=== PATIENT | female | born 1945 | race Caucasian/White ===

== ENCOUNTER → 2016-07-18 | Outpatient (RCR) ==
--- NOTE | 2016-07-02 12:57 | RS.OPPTEV2 ---
Date of Note: 07/02/16 Visit #: 1 Date of Evaluation: 07/02/16 Payer Source: MEDICARE Date of Onset/Injury/Change in Status: 04/20/16 Surgery Performed?: No Treatment Diagnosis: Neck pain History of Condition/Mechanism of Injury:: Patient states she has RA and OA which have been progressing over the past 6 months. She receives IV infusions months of Simponit for her RA. She states she has constant neck and lower back pain but the neck is more intense. 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 She has had no specific injury or event that she is aware of which triggered her pain. She denies radicular symptoms. Prior Level of Function.....Patient was independent with: ADL's, Self Care, Work /Vocation, Caregiving, Ambulation/Mobility, Community Integration/Access Functional Limitations: Lifting, Carrying Treatment Side (optional): Bilateral Medical History Medical History: Arthritis Medical History Comments:: RA & OA Surgical History: Other Surgical History Comments:: Right thumb tendon transfer to [facility] Smoking Status: Never smoker Hx Home Medications: Just began Celebrex, aspirin, calcium, fish oil, neurotin, glucosamine & restasis Pain Assessment - Pain Description Pain Location: Cervical and Lower back Pain Description: Chronic Pain Description: Constant Current Pain Intensity: 2/10 Functional Outcome Measure Oswestry LBP: 12 (24% disability) - G Codes & Severity Modifier G Codes & Modifier: Carrying: Eval - CJ. Goal - CI Source of G Code score: Oswestry LBP Scale Observation - Observation Posture: Forward Head (Conor), Rounded Shoulders Handedness: Right Comments: Bilateral scapular winging. - ROM Cervical Left Rotation: 75 (%) Cervical Spine Range of Motion Limitations: Pain - Strength Cervical Extension: 4+ Good + Cervical Flexion: 4+ Good + Cervical Lateral Flexion: 4+ Good + Cervical Rotation: 4 Good Shoulder ROM: Bilaterally WFL's Shoulder Muscle Strength: Bilaterally WFL's Palpation Palpation Findings: None/Normal Sensation - Sensation Right Lower Extremity: Impaired Sensation Description: Tingling Interventions - Exercise/Activities/Manual Therapy Exercises/Activities: na Manual Therapy: A-O release and lateral cervical glides with right being stricked at every level. Total minutes of Manual Therapy: 10 - Charges Total Direct Minutes: 15 Total Treatment Time: 60 Procedures billed for this date of service:: PT Anibal (Medium) & MT Assessment Assessment: Constant pain in the neck and lower back with neck being more severe and focus of tx at this tme. She has limited left cervical rotation and SB, scapular weakness and bilateral pec tightness. Short Term Goals Goal #1: Independent with basic HEP Goal to be met by: 07/18/16 Goal #2: Pt sleeps through the night w/o pain awakening her. Goal to be met by: 07/18/16 Goal #3: Independent with proper body mechanics for her work duties. Goal to be met by: 07/18/16 Counsellors Goals Goal #1: Pain is less than daily in the neck. Goal to be met by: 08/08/16 Goal #2: Patient independent with scapular strengthening. Goal to be met by: 08/08/16 Goal #3: CROM WNLs in all planes w/o pain. Plan - Treatment to be Provided Procedures: Therapeutic Exercises (Treatment code: Neck pain M54.2), Therapeutic Activity, Manual Therapy, Patient Education Modalities: Electrical Stimulation, Ultrasound/Phonophoresis, Class IV Laser, Cryotherapy, Hot Packs - Treatment Plan Frequency: 3 X week Duration: 6 weeks ORDER # VISITS AND/OR THROUGH DATE: 08/08/2016
--- NOTE | 2016-07-04 15:32 | RS.OPPTDN ---
Subjective Date of Note: 07/04/16 Visit #: 2 Date of Evaluation: 07/02/16 Payer Source: MEDICARE Treatment Diagnosis: Neck pain Current Subjective/complaints:: Patient reports her neck pain is minimal at rest currently,but has increased sudden pain at times ,dependent upon the position of her neck,such as while driving. Pain Assessment - Pain Description Pain Location: Cervical and Lower back Pain Description: Chronic Pain Description: Constant Current Pain Intensity: 2/10 - Treatment Modality: Electrical Stim Unattended Parameters/Method Applied: 20 mins. high volt,one channel( 2 electrodes on bilateral cervical/UT's) @95 pv. Patient Position: Sitting - Heat/Cryotherapy Treatment: Hot Pack (concurrent with e-stim) Interventions - Exercise/Activities/Manual Therapy Exercises/Activities: 20 mins. total ,instructed in chin tucks,CROM of lateral flexion ,rotation,passive shoulder depression,postural awareness,ergonomics, and body mechanics. Total minutes of Exercise: 20 Manual Therapy: NA Total minutes of Manual Therapy: 0 HOME EXERCISE PROGRAM: Cervical ROM in PAIN FREE ROM,gravity assisted stretches in supine for posture. - Charges Total Direct Minutes: 20 Total Treatment Time: 40 Procedures billed for this date of service:: hp,e-stim,ex 1 Assessment: Patient very attentive ,motivated to improve.She has good return demo of exercises.She reports increased pain with cervical lateral flexion today.She has decreased cervical lordosis present.We discussed making her work environment more user friendly to assist decreasing the forward head,rounded shoulders posturing. Patient Education: Education of diagnosis, Body/Joint mechanics, Home Exercise Program, Home Safety, Activity Modification, Education of Plan of Care Patient demonstrates compliance with HEP?: Yes Short Term Goals Goal #1: Independent with basic HEP Goal to be met by: 07/18/16 Progress towards Goal:: Progressing Goal #2: Pt sleeps through the night w/o pain awakening her. Goal to be met by: 07/18/16 Goal #3: Independent with proper body mechanics for her work duties. 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 Goal to be met by: 08/08/16 Goal #2: Patient independent with scapular strengthening. Goal to be met by: 08/08/16 Goal #3: CROM WNLs in all planes w/o pain. Plan PLAN OF CARE EXPIRES ON:: 08/08/16 ORDER # VISITS AND/OR THROUGH DATE: 08/08/2016 PLAN: Continue Plan of Care
--- NOTE | 2016-07-07 10:12 | RS.OPPTDN ---
Subjective Date of Note: 07/07/16 Visit #: 3 Date of Evaluation: 07/02/16 Payer Source: MEDICARE Treatment Diagnosis: Neck pain Current Subjective/complaints:: Patient reports the neck pain feels about the same today,but is not interfering with her sleep. Pain Assessment - Pain Description Pain Location: Cervical and Lower back Pain Description: Dull, Aching, Chronic Pain Description: constant Current Pain Intensity: 2/10 - Treatment Modality: Electrical Stim Unattended Parameters/Method Applied: 20 mins. high volt to cervical paraspinals,75 -90 pv. Patient Position: Sitting - Heat/Cryotherapy Treatment: Hot Pack (concurrent with e-stim) Interventions - Exercise/Activities/Manual Therapy Exercises/Activities: HEP review while on e-stim. Total minutes of Exercise: 0 Manual Therapy: 20 mins. deep tissue massage to cervical /UT's area,trigger point work to R UT. Total minutes of Manual Therapy: 20 HOME EXERCISE PROGRAM: Cervical ROM in PAIN FREE ROM,gravity assisted stretches in supine for posture. - Charges Total Direct Minutes: 20 Total Treatment Time: 40 Procedures billed for this date of service:: hp,e-stim,manual 1 Assessment: Patient reports significant relief today after manual therapy,less pain with cervical motion.She is compliant to HEP. Patient Education: Education of diagnosis, Body/Joint mechanics, Home Exercise Program, Home Safety, Activity Modification, Education of Plan of Care Patient demonstrates compliance with HEP?: Yes Short Term Goals Goal #1: Independent with basic HEP Goal to be met by: 07/18/16 Progress towards Goal:: Progressing Goal #2: Pt sleeps through the night w/o pain awakening her. Goal to be met by: 07/18/16 Goal #3: Independent with proper body mechanics for her work duties. 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 Goal to be met by: 08/08/16 Goal #2: Patient independent with scapular strengthening. Goal to be met by: 08/08/16 Progress towards goal: Progressing Goal #3: CROM WNLs in all planes w/o pain. Plan PLAN OF CARE EXPIRES ON:: 08/08/16 ORDER # VISITS AND/OR THROUGH DATE: 08/08/2016 PLAN: Continue Plan of Care
--- NOTE | 2016-07-09 16:29 | RS.OPPTDN ---
Subjective Date of Note: 07/09/16 Visit #: 4 Date of Evaluation: 07/02/16 Payer Source: MEDICARE Treatment Diagnosis: Neck pain Current Subjective/complaints:: Reports she feels much better today,is also more aware of her posture. Pain Assessment - Pain Description Pain Location: Cervical and Lower back Pain Description: Dull, Aching, Chronic Current Pain Intensity: 04/29 - Treatment Modality: Electrical Stim Unattended Parameters/Method Applied: 20 mins. high volt,to cervical/UT's one channel @ 75- 105pv. Patient Position: Sitting - Heat/Cryotherapy Treatment: Hot Pack (concurrent with e-stim) Interventions - Exercise/Activities/Manual Therapy Exercises/Activities: 20 mins. instruction for postural pullbacks with yellow- theraband at three different levels,HEP review of cervical ROM. Total minutes of Exercise: 20 Manual Therapy: N/A Total minutes of Manual Therapy: 0 HOME EXERCISE PROGRAM: Cervical ROM in PAIN FREE ROM,gravity assisted stretches in supine for posture. - Charges Total Direct Minutes: 20 Total Treatment Time: 40 Procedures billed for this date of service:: hp,e-stim,ex 1 Assessment: Patient progressing ,has good return demo of new exercises for HEP.Her pain level is decreased and less frequent the past couple of days.She has increased awareness of her posture. Patient Education: Education of diagnosis, Body/Joint mechanics, Home Exercise Program, Home Safety, Activity Modification, Education of Plan of Care Patient demonstrates compliance with HEP?: Yes Short Term Goals Goal #1: Independent with basic HEP Goal to be met by: 07/18/16 Progress towards Goal:: Progressing Goal #2: Pt sleeps through the night w/o pain awakening her. Goal to be met by: 07/18/16 Progress towards Goal:: Progressing Goal #3: Independent with proper body mechanics for her work duties. 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 Goal to be met by: 08/08/16 Goal #2: Patient independent with scapular strengthening. Goal to be met by: 08/08/16 Progress towards goal: Progressing Goal #3: CROM WNLs in all planes w/o pain. Plan PLAN OF CARE EXPIRES ON:: 08/08/16 ORDER # VISITS AND/OR THROUGH DATE: 08/08/2016 PLAN: Continue Plan of Care
--- NOTE | 2016-07-11 16:33 | RS.OPPTDN ---
Subjective Date of Note: 07/11/16 Visit #: 5 Date of Evaluation: 07/02/16 Payer Source: MEDICARE Treatment Diagnosis: Neck pain Current Subjective/complaints:: Reports feeling better today,is compliant to HEP. Pain Assessment - Pain Description Pain Location: Cervical and Lower back Pain Description: Dull, Aching, Chronic Current Pain Intensity: 1-2/10 - Treatment Modality: Electrical Stim Unattended Parameters/Method Applied: 20 mins high volt ,one channel @ 90 pv. to cervical/ UT's. Patient Position: Sitting - Heat/Cryotherapy Treatment: Hot Pack (concurrent with e-stim) Interventions - Exercise/Activities/Manual Therapy Exercises/Activities: N/A Total minutes of Exercise: 0 Manual Therapy: 20 mins.deep tissue mobs. to cervical/UT's. Total minutes of Manual Therapy: 20 HOME EXERCISE PROGRAM: Cervical ROM in PAIN FREE ROM,gravity assisted stretches in supine for posture. - Charges Total Direct Minutes: 20 Total Treatment Time: 40 Procedures billed for this date of service:: hp,e-stim,manual 1 Assessment: Progressing well with HEP,does have R sided trigger point at base of her neck,which elicits pain with rotation to the L today.We discussed to stretch before and after strengthening exercises at the gym. Patient Education: Education of diagnosis, Body/Joint mechanics, Home Exercise Program, Home Safety, Activity Modification, Education of Plan of Care Patient demonstrates compliance with HEP?: Yes Short Term Goals Goal #1: Independent with basic HEP Goal to be met by: 07/18/16 Progress towards Goal:: Progressing Goal #2: Pt sleeps through the night w/o pain awakening her. Goal to be met by: 07/18/16 Progress towards Goal:: Progressing Goal #3: Independent with proper body mechanics for her work duties. Goal to be met by: 07/18/16 Progress towards Goal:: Progressing Halfway Goals Goal #1: Pain is less than daily in the neck. Goal to be met by: 08/08/16 Progress towards goal: Progressing Goal #2: Patient independent with scapular strengthening. Goal to be met by: 08/08/16 Progress towards goal: Progressing Goal #3: CROM WNLs in all planes w/o pain. Plan PLAN OF CARE EXPIRES ON:: 08/08/16 ORDER # VISITS AND/OR THROUGH DATE: 08/08/2016 PLAN: Continue Plan of Care
--- NOTE | 2016-07-15 09:22 | RS.OPPTDN ---
Subjective Date of Note: 07/15/16 Visit #: 6 Date of Evaluation: 07/02/16 Payer Source: MEDICARE Treatment Diagnosis: Neck pain Current Subjective/complaints:: Reports the neck is feeling better,is doing her HEP.We will focus on her back pain and address exercises for the lumbar. Pain Assessment - Pain Description Pain Location: Cervical and Lower back Pain Description: Dull, Aching, Chronic Pain Description: constant Current Pain Intensity: 1-2/10 - Heat/Cryotherapy Treatment: Hot Pack (20 mins. to lumbar in supine prior to exercises) Interventions - Exercise/Activities/Manual Therapy Exercises/Activities: 25 mins. instruction of pelvic tilts,SKTC,DKTC,90/90 hamstring stretches,piriformis stretches,and HEP review of exercises already given,including the theraband postural pullbacks. Total minutes of Exercise: 25 Manual Therapy: N/A Total minutes of Manual Therapy: 0 HOME EXERCISE PROGRAM: Cervical ROM in PAIN FREE ROM,gravity assisted stretches in supine for posture. - Charges Total Direct Minutes: 25 Total Treatment Time: 45 Procedures billed for this date of service:: hp,ex 2 Assessment: Patient reports stretch discomfort only with low back/LE exercises.She has moderate tightness ni the R piriformis and hamstring group, but does respond well to stretching.She is highly motivated to improve and coompliant to HEP. Patient Education: Education of diagnosis, Body/Joint mechanics, Home Exercise Program, Home Safety, Activity Modification, Education of Plan of Care Patient demonstrates compliance with HEP?: Yes Short Term Goals Goal #1: Independent with basic HEP Goal to be met by: 07/18/16 Progress towards Goal:: Partially Met Goal #2: Pt sleeps through the night w/o pain awakening her. Goal to be met by: 07/18/16 Progress towards Goal:: Progressing Goal #3: Independent with proper body mechanics for her work duties. Goal to be met by: 07/18/16 Progress towards Goal:: Progressing Custodial Goals Goal #1: Pain is less than daily in the neck. Goal to be met by: 08/08/16 Progress towards goal: Progressing Goal #2: Patient independent with scapular strengthening. Goal to be met by: 08/08/16 Progress towards goal: Progressing Goal #3: CROM WNLs in all planes w/o pain. Progress towards goal: Progressing Plan PLAN OF CARE EXPIRES ON:: 08/08/16 ORDER # VISITS AND/OR THROUGH DATE: 08/08/2016 PLAN: Continue Plan of Care
--- NOTE | 2016-07-17 08:41 | RS.OPPTDN ---
Subjective Date of Note: 07/16/16 Visit #: 7 Date of Evaluation: 07/02/16 Payer Source: MEDICARE Treatment Diagnosis: Neck pain Current Subjective/complaints:: Patient reports back pain is better since progressing stretching. States she has had little to no neck pain today. Pain Assessment - Pain Description Pain Location: Cervical and Lower back Pain Description: Dull, Aching, Chronic Pain Description: constant Current Pain Intensity: neck 0-2/10 and mild LBP today. - Heat/Cryotherapy Treatment: Hot Pack ([id number] to the neck and lowback prior to EX. Patient in supine. ) Interventions - Exercise/Activities/Manual Therapy Exercises/Activities: 30 mins. Reviewed cervical stretching and theraband for postural pullbacks. Assisted with hamstring, piriformis, figure 4, SKTC, and trunk rotation stretching. Pelvic tilts, isometric hip add, isometric hip flexion, bridging. Reviewed patient education of dx, body mechanics, and HEP. Patient given copies of new exercises. Total minutes of Exercise: 30mins Manual Therapy: N/A HOME EXERCISE PROGRAM: Cervical ROM in PAIN FREE ROM, gravity assisted stretches in supine for posture. HS and piriformis stretching. Isometric hip flexion. Bridging. - Charges Total Direct Minutes: 30mins Total Treatment Time: 50mins Procedures billed for this date of service:: HP, EX2 Assessment: Patient reporting improvement in pain with progressive exercise. Patient Education: Education of diagnosis, Body/Joint mechanics, Home Exercise Program, Home Safety, Activity Modification Patient demonstrates compliance with HEP?: Yes Short Term Goals Goal #1: Independent with basic HEP Goal to be met by: 07/18/16 Progress towards Goal:: Met Goal #2: Pt sleeps through the night w/o pain awakening her. Goal to be met by: 07/18/16 Progress towards Goal:: Progressing Goal #3: Independent with proper body mechanics for her work duties. 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 Goal to be met by: 08/08/16 Progress towards goal: Progressing Goal #2: Patient independent with scapular strengthening. Goal to be met by: 08/08/16 Progress towards goal: Progressing Goal #3: CROM WNLs in all planes w/o pain. Progress towards goal: Progressing Plan PLAN OF CARE EXPIRES ON:: 08/08/16 ORDER # VISITS AND/OR THROUGH DATE: 08/08/2016 PLAN: Continue Plan of Care (Continue and progress stretching and strengthening exercise.)
--- NOTE | 2016-07-18 16:29 | RS.OPPTDN ---
Subjective Date of Note: 07/18/16 Visit #: 8 Date of Evaluation: 07/02/16 Payer Source: MEDICARE Treatment Diagnosis: Neck pain Current Subjective/complaints:: Patient reports continued improvement in neck and back pain with assisted stretching and progressive HEP. Pain Assessment - Pain Description Pain Location: Cervical and Lower back Pain Description: Dull, Aching, Chronic Pain Description: constant Current Pain Intensity: neck 0-2/10 and mild LBP today. - Heat/Cryotherapy Treatment: Hot Pack ([id number] to the bilateral neck/traps and the lowback prior to EX. Patient in supine. ) Interventions - Exercise/Activities/Manual Therapy Exercises/Activities: 30 mins. Assisted with hamstring, piriformis, figure 4, SKTC, and trunk rotation stretching. Pelvic tilts, isometric hip add, isometric hip flexion, isometric trunk rotation, and bridging. Green theraband for resisted bilateral hip abduction. Assisted with cervical lateral flexion in sitting. Reviewed wall angels and patient given red theraband for progression of scapular retraction. Reviewed patient education of dx, body mechanics, and HEP. Patient given additional therabands and copies of new exercises. Total minutes of Exercise: 30mins Manual Therapy: N/A HOME EXERCISE PROGRAM: Cervical ROM in PAIN FREE ROM, gravity assisted stretches in supine for posture. HS and piriformis stretching. Isometric hip flexion. Bridging. Wall angels. Green theraband for resistive hip abd in hook- lying. - Charges Total Direct Minutes: 30mins Total Treatment Time: 50mins Procedures billed for this date of service:: HP, EX2 Assessment: Patient consistently reporting progress with exercises. She is motivated to exercise and progress. Patient Education: Education of diagnosis, Body/Joint mechanics, Home Exercise Program, Home Safety, Activity Modification Patient demonstrates compliance with HEP?: Yes Short Term Goals Goal #1: Independent with basic HEP Goal to be met by: 07/18/16 Progress towards Goal:: Met Goal #2: Pt sleeps through the night w/o pain awakening her. Goal to be met by: 07/18/16 Progress towards Goal:: Progressing Goal #3: Independent with proper body mechanics for her work duties. 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 Goal to be met by: 08/08/16 Progress towards goal: Progressing Goal #2: Patient independent with scapular strengthening. Goal to be met by: 08/08/16 Progress towards goal: Progressing Goal #3: CROM WNLs in all planes w/o pain. Goal to be met by: 08/08/16 Progress towards goal: Progressing Plan PLAN OF CARE EXPIRES ON:: 08/08/16 ORDER # VISITS AND/OR THROUGH DATE: 08/08/2016 PLAN: Continue Plan of Care (Continue and progress stretching and strengthening exercise.)
== END ==
PROVIDERS: ATTEND Orthopaedic Surgery Orthopaedic Surgery of the Spine
DX: M54.5 Low back pain (principal); M54.2 Cervicalgia

== ENCOUNTER 2016-07-25 15:00 | Outpatient (RCR) ==
--- NOTE | 2016-07-23 16:27 | RS.OPPTDN ---
Subjective Date of Note: 07/23/16 Visit #: 9 Date of Evaluation: 07/02/16 Payer Source: MEDICARE Treatment Diagnosis: Neck pain,LBP Current Subjective/complaints:: Reports the neck is better today,and her low back is also improving.She reports she can tell that the exercises help,and knows when she has not done them.She is trying to do them at least twice per day. Pain Assessment - Pain Description Pain Location: Cervical and Lower back Pain Description: Dull, Aching Current Pain Intensity: 2-3 in lumbar - Heat/Cryotherapy Treatment: Hot Pack (20 mins. to cervical and lumbar prior to exercises.) Interventions - Exercise/Activities/Manual Therapy Exercises/Activities: 35 mins. total of alternating UE/LE exercises in standing, quadruped,and sitting on therapy ball,reviewed postural pullbacks at different heights. Total minutes of Exercise: 35 Manual Therapy: N/A Total minutes of Manual Therapy: 0 HOME EXERCISE PROGRAM: Cervical ROM in PAIN FREE ROM, gravity assisted stretches in supine for posture. HS and piriformis stretching. Isometric hip flexion. Bridging. Wall angels. Green theraband for resistive hip abd in hook- lying. - Charges Total Direct Minutes: 35 Total Treatment Time: 55 Procedures billed for this date of service:: hp,ex 2 Assessment: Patient progressing well,has much improved postural awareness,good return demo of exercises added to HEP today. Patient Education: Education of diagnosis, Body/Joint mechanics, Home Exercise Program, Home Safety, Activity Modification, Education of Plan of Care Patient demonstrates compliance with HEP?: Yes Short Term Goals Goal #1: Independent with basic HEP Goal to be met by: 07/18/16 Progress towards Goal:: Met Goal #2: Pt sleeps through the night w/o pain awakening her. Goal to be met by: 07/18/16 Progress towards Goal:: Progressing Goal #3: Independent with proper body mechanics for her work duties. Goal to be met by: 07/18/16 Progress towards Goal:: Partially Met Residential Goals Goal #1: Pain is less than daily in the neck. Goal to be met by: 08/08/16 Progress towards goal: Progressing Goal #2: Patient independent with scapular strengthening. Goal to be met by: 08/08/16 Progress towards goal: Progressing Goal #3: CROM WNLs in all planes w/o pain. Goal to be met by: 08/08/16 Progress towards goal: Progressing Plan PLAN OF CARE EXPIRES ON:: 08/08/16 ORDER # VISITS AND/OR THROUGH DATE: 08/08/2016
--- NOTE | 2016-07-25 16:28 | RS.OPPTDN ---
Subjective Date of Note: 07/25/16 Visit #: 10 Date of Evaluation: 07/02/16 Payer Source: MEDICARE Treatment Diagnosis: Neck pain,LBP Current Subjective/complaints:: Patient feels she has learned alot regarding her posture and proper exercises technique.She agrees with D/C plan today. Pain Assessment - Pain Description Pain Location: Cervical and Lower back Pain Description: Dull, Aching Pain Description: less frequent Current Pain Intensity: not rated - Heat/Cryotherapy Treatment: Hot Pack (20 mins. to lumbar and cervical prior to exsercises) Interventions - Exercise/Activities/Manual Therapy Exercises/Activities: 35 mins. total HEP review for lumbar and cervical exercises,joint protection,and pain mamagement.She has written exercises for AROM for neck and back,theraband for home posture exercises. Total minutes of Exercise: 35 Manual Therapy: N/A Total minutes of Manual Therapy: 0 HOME EXERCISE PROGRAM: Cervical ROM in PAIN FREE ROM, gravity assisted stretches in supine for posture. HS and piriformis stretching. Isometric hip flexion. Bridging. Wall angels. Green theraband for resistive hip abd in hook- lying. - Charges Total Direct Minutes: 35 Total Treatment Time: 55 Procedures billed for this date of service:: hp,ex 2 Assessment: Patient has progressed well with patient education,very pro-active .She agrees with D/C She has met or partially met her rehab goals. Patient demonstrates compliance with HEP?: Yes Short Term Goals Goal #1: Independent with basic HEP Goal to be met by: 07/18/16 Progress towards Goal:: Met Goal #2: Pt sleeps through the night w/o pain awakening her. Goal to be met by: 07/18/16 Progress towards Goal:: Partially Met Goal #3: Independent with proper body mechanics for her work duties. Goal to be met by: 07/18/16 Progress towards Goal:: Met [facility] Goals Goal #1: Pain is less than daily in the neck. Goal to be met by: 08/08/16 Progress towards goal: Partially Met Goal #2: Patient independent with scapular strengthening. Goal to be met by: 08/08/16 Progress towards goal: Met Goal #3: CROM WNLs in all planes w/o pain. Goal to be met by: 08/08/16 Progress towards goal: Partially Met Plan PLAN OF CARE EXPIRES ON:: 08/08/16 ORDER # VISITS AND/OR THROUGH DATE: 08/08/2016 PLAN: Plan for Discharge
--- NOTE | 2016-08-08 13:23 | RS.OPPTDC ---
Date of Discharge: 07/25/16 Date of Evaluation: 07/02/16 Number of Visits: 10 Treatment Diagnosis: Neck pain,LBP Current Complaints/Gains: Patient reports her pain still varies, but is much more aware of her posture and has learned more about her HEP. She is confident that she can continue her exercises on her own. Functional Outcome Measure Oswestry LBP: 9 - G Codes & Severity Modifier G Codes & Modifier: Carry goal CI. Carry D/C CI Source of G Code score: Oswestry LBP Interventions - Exercise/Activities/Manual Therapy Exercises/Activities: NA Manual Therapy: N/A HOME EXERCISE PROGRAM: Cervical ROM in PAIN FREE ROM, gravity assisted stretches in supine for posture. HS and piriformis stretching. Isometric hip flexion. Bridging. Wall angels. Green theraband for resistive hip abd in hook- lying. - Objective Findings Observations,measurements,etc.: Cervical ROM is less painful. Demonstrates improved mobilty at the cervical spine. She demonstrates good understanding of HEP and ergonomics. - Charges Total Direct Minutes: NA Total Treatment Time: NA Procedures billed for this date of service:: NA Assessment Assessment: Patient demonstrates independence and understanding of HEP. Reports less pain with neck ROM and shows improved postural awareness. She agrees that she can continue with HEP on her own. Short Term Goals Goal #1: Independent with basic HEP Goal to be met by: 07/18/16 Progress towards Goal:: Met Goal #2: Pt sleeps through the night w/o pain awakening her. Goal to be met by: 07/18/16 Progress towards Goal:: Partially Met Goal #3: Independent with proper body mechanics for her work duties. Goal to be met by: 07/18/16 Progress towards Goal:: Met [facility] Goals Goal #1: Pain is less than daily in the neck. Goal to be met by: 08/08/16 Progress towards goal: Partially Met Goal #2: Patient independent with scapular strengthening. Goal to be met by: 08/08/16 Progress towards goal: Met Goal #3: CROM WNLs in all planes w/o pain. Goal to be met by: 08/08/16 Progress towards goal: Partially Met Plan Reason for Discharge:: No Further Skilled Therapy Indicated
== END 2016-08-17 ==
PROVIDERS: ATTEND Orthopaedic Surgery Orthopaedic Surgery of the Spine
DX: M54.5 Low back pain (principal); M54.2 Cervicalgia

== ENCOUNTER 2017-10-23 13:23 | Outpatient (CLI) | payer OTHER ==
--- NOTE | 2017-10-23 14:12 | US ---
EXAM: Bilateral carotid artery Doppler History: Carotid bruits. Technique: Multiple sonographic images through the bilateral internal carotid arteries were obtained . Color duplex Doppler was used to interrogate vascular flow. Findings: The right ICA peak systolic velocity is within normal limits measuring 1.0 meters per second. The ri ght ICA/cca PSV ratio is normal at 1.3. The right vertebral artery is patent and demonstrates antegra de flow. Harper scale images demonstrate mild plaque buildup within the right internal carotid artery. The left ICA peak systolic velocity is within normal limits measuring 1.1. Meters per second. The l eft ICA/cca PSV ratio is normal at 1.5. The left vertebral artery is patent and demonstrates antegra de flow. Harper scale images demonstrate mild plaque buildup within the left internal carotid artery Impression: No significant hemodynamic stenosis of the bilateral internal carotid arteries
== END 2017-10-23 13:24 | disposition home or self-care (01) ==
LOC: RAD 13:23
PROVIDERS: ATTEND Family Medicine
DX: R09.89 Other specified symptoms and signs involving the circulatory and respiratory systems (principal)